=== PATIENT | female | born 1990 | race Caucasian/White ===

== ENCOUNTER → 2016-11-11 | Outpatient (CLI) | payer BC ==
[~2016-11-11] MED LIST: CLOM50TA6 PO; PRENTAB26 PO
[2016-11-11 11:10] LABS: BASO % 0.1 %; BASO ABS # 0.01 K/uL (0-0.2); COMPLETE YES; EOS % 0.8 %; HEMATOCRIT 38.6 % (37-47); IG% 0.1 %; LYMPH % 18.1 %; LYMPH ABS # 1.32 K/uL (1.2-3.4); MEAN CELL VOLUME 88.1 fL (80-100); MEAN CORPUSCULAR HEMOGLOBIN 30.4 pg (25-34); MEAN CORPUSCULAR HGB CONC 34.5 g/dl (32-36); MEAN PLATELET VOLUME 9.9 fL (7.4-10.4); MONO % 6.2 %; NEUT % 74.7 %; PLATELET COUNT 284 K/uL (130-400); RED BLOOD COUNT 4.38 M/uL (4.2-5.4); WHITE BLOOD COUNT 7.29 K/uL (4.8-10.8)
[2016-11-11 14:07] LABS: URINE APPEARANCE CLEAR (CLEAR); URINE BILIRUBIN NEG (NEG); URINE COLOR DK YELLOW; URINE EPITHELIAL CELL AUTO >30 /lpf (0-5); URINE NITRITE NEG (NEG); URINE PH 6.5 (4.5-7.5); URINE SPECIFIC GRAVITY 1.021 (1.000-1.030); UROBILINOGEN NEG (NEG)
[2016-11-11 14:10] LABS: MANUAL MICROSCOPIC REQUIRED? NO; REVIEW REQ? NO
[2016-11-14 01:55] LABS: CHLAMYDIA TRACH RNA*** NOT DETECTED (NOT DETECTED); GC (NEIS GONORRHOEAE)RNA** NOT DETECTED (NOT DETECTED)
== END | disposition home or self-care (01) ==
LOC: C.LAB1850 10:17
PROVIDERS: ATTEND Obstetrics & Gynecology
DX: Z34.82 Encounter for supervision of other normal pregnancy, second trimester (principal)

== ENCOUNTER → 2016-12-30 | Outpatient (CLI) | payer BC ==
[2016-12-30 11:59] LABS: GTGD 50 Grams
== END | disposition home or self-care (01) ==
LOC: C.LAB1850 09:52
PROVIDERS: ATTEND Obstetrics & Gynecology
DX: Z34.83 Encounter for supervision of other normal pregnancy, third trimester (principal)

== ENCOUNTER → 2017-01-06 | Outpatient (CLI) | payer BC | END | disposition home or self-care (01) | LOC: C.LAB1850 07:16 | PROVIDERS: ATTEND Obstetrics & Gynecology | DX: O28.9 Unspecified abnormal findings on antenatal screening of mother (principal) ==

== ENCOUNTER → 2017-03-25 | Outpatient (CLI) | payer BC ==
[2017-03-25 17:39] LABS: URINE APPEARANCE CLOUDY (CLEAR); URINE BILIRUBIN NEG (NEG); URINE COLOR DK YELLOW; URINE EPITHELIAL CELL AUTO >30 /lpf (0-5); URINE NITRITE NEG (NEG); URINE PH 5.5 (4.5-7.5); URINE SPECIFIC GRAVITY 1.026 (1.000-1.030); UROBILINOGEN NEG (NEG)
[2017-03-25 17:40] LABS: MANUAL MICROSCOPIC REQUIRED? NO; REVIEW REQ? NO
== END | disposition home or self-care (01) ==
LOC: C.LABSPEC 16:23
PROVIDERS: ATTEND Obstetrics & Gynecology
DX: Z34.83 Encounter for supervision of other normal pregnancy, third trimester (principal)

== ENCOUNTER → 2017-03-31 | Outpatient (CLI) | payer BC ==
[2017-03-31 09:32] LABS: HEMATOCRIT 33.3 % (37-47)
== END | disposition home or self-care (01) ==
LOC: C.LAB1850 07:05
PROVIDERS: ATTEND Obstetrics & Gynecology
DX: Z34.83 Encounter for supervision of other normal pregnancy, third trimester (principal)

== ENCOUNTER 2017-04-04 19:45 | Outpatient (CLI) | payer BC ==
[~2017-04-04] VITALS: Ht 165.1 cm; Wt 85.3 kg
[2017-04-04 20:59] VITALS: Ht 165.1 cm; Wt 85.3 kg
--- NOTE | 2017-04-04 21:41 | DIAGNOSTIC IMAGING REPORT ---
BIO PROF W/O NST-SINGLE ULTRASOUND CLINICAL HISTORY: decreased movement. COMPARISON STUDY: ultrasound 02/23/2016. FINDINGS: heart rate was 153 bpm. A survey was not performed. tone, movement, and breathing was demonstrated during the examination. Amniotic fluid index was 14.67 cm. Femur length is 5.5 cm consistent with a 29 week and 0 day fetus. Anterior placenta. No evidence for subchorionic hematoma. The cervix appears closed. Initial images demonstrate an abnormal appearance to the lower uterine segment likely representing a contraction. However, this resolved by the end of the examination. IMPRESSION: 1. heart rate was 153 bpm. 2. Biophysical profile score was 8 out of 8. Electronically signed by: Uri Rosenbaum M.D. 04/04/2017 9:39 PM Dictated Date/Time: 04/04/2017 9:37 PM
== END 2017-04-04 21:54 | disposition home or self-care (01) ==
LOC: C.OPB 19:45 → C.LD 19:45 → C.OPB 21:54
PROVIDERS: ATTEND Obstetrics & Gynecology
DX: O36.8130 Decreased fetal movements, third trimester, not applicable or unspecified (principal); Z3A.29 29 weeks gestation of pregnancy

== ENCOUNTER 2017-05-06 18:57 | Emergency (ER) | payer BC ==
[~2017-05-06] VITALS: Ht 165.1 cm; Wt 89.9 kg
[2017-05-06 19:00] VITALS: TEMP 36.8; Ht 165.1 cm; Wt 89.9 kg
--- NOTE | 2017-05-06 22:13 | EMERGENCY ROOM VISIT NOTE ---
History First contact with patient: 19:22 Chief Complaint: PALPITATIONS Stated Complaint: HEART PALPS Nursing Triage Summary: gets a cough and then feeling of palpations. History of Present Illness The patient is a 26 year old female who presents to the Emergency Room with complaints of intermittent palpitations. The patient is currently 34 weeks . She states that for the past 4 days, she has had intermittent palpitations which have been gradually increasing. She states that she has episodes of palpitations throughout the day and they do seem to slow down in the evening. She reports a fluttering, sometimes tight feeling in her chest and neck. These symptoms occasionally cause her to cough. She states that today at approximately 3 in the afternoon, she was awaiting a call from her OB/ LIVESTOCK LABORER with test results and she had constant symptoms for approximately 1 hour. The patient has had palpitations in the past, particularly when she was taking fertility medications. The patient has had 2 prior pregnancies and has never had symptoms like this in the past with . The patient states that her heart rate is normally between 109-110 when she is . She is currently being seen by FINANCIAL ADMINISTRATOR for possible preeclampsia, due to slightly elevated blood pressure and trace protein in the urine. She denies any swelling of her extremities. She denies any shortness of breath, chest pain or syncope. Review of Systems A complete 10 point review of systems was reviewed with the patient with pertinent positives and negatives as per history of present illness. All else were negative. Past Medical/Surgical History Medical Problems: (1) Abdominal pain (2) Decreased movement affecting management of in third trimester (3) Diarrhea (4) Intrauterine (5) Leg pain, right (6) Normal labor (7) Polycystic ovarian disease (8) with 29 completed weeks gestation Family History Diabetes mellitus FH: heart disease FH: thyroid disease Lung disease Social History Smoking Status: Never Smoker Alcohol Use: none Drug Use: none Marital Status: Occupation Status: employed Current/Historical Medications Scheduled Multivit/Min/Iron/Fol Ac/Pren ( Vitamin), 1 TAB PO DAILY Allergies Coded Allergies: Sulfamethoxazole w/Trimethoprim (Verified Allergy, Unknown, RASH, 05/06/17) Physical Exam Vital Signs Date Time Temp Pulse Resp B/P (MAP) Pulse Ox O2 Delivery O2 Flow Rate FiO2 05/06/17 22:46 103 18 148/92 96 05/06/17 22:00 105 16 05/06/17 20:17 114 16 128/79 96 Room Air 05/06/17 19:20 120 05/06/17 19:18 119 16 131/83 96 Room Air 05/06/17 19:16 96 Room Air 05/06/17 19:00 36.8 114 20 143/93 98 Room Air Physical Exam VITALS: Vitals are noted on the nurse's note and reviewed by myself. Vital signs stable. GENERAL: This is a 26-year-old female, in no acute distress, nondiaphoretic, well-developed well-nourished. HEENT: Normocephalic. PERRLA. EOMI. Nares patent. Mucous membranes moist. Neck is supple without nuchal rigidity. HEART: Regular rate and rhythm without murmurs gallops or rubs. LUNGS: Clear to auscultation bilaterally without wheezes, rales or rhonchi. NEURO: Patient was alert and oriented to person place and time. Medical Decision & Procedures ECG Rate (beats per minute): 107 Rhythm: sinus tachycardia Findings: no acute ischemic change, no ectopy Comparison ECG Date: no prior available Medical Decision Differential diagnosis includes PVCs, PACs, SVT, among others. The patient is a 26-year-old female who presents today complaining of palpitations. The patient does have a follow-up scheduled with [facility] cardiology in approximately one week. She had laboratory testing done earlier today. This was reviewed and showed a mild anemia. No concerning Stella tab modalities. Patient was in a euthyroid state. Her EKG performed today showed a sinus tachycardia with no acute findings. Patient was persistently tachycardic, but this appears to be baseline for her. I did observe the patient on the monitor for several minutes. She was having fairly frequent PVCs and reported symptoms each time this occurred. There were no runs of 2+ PVCs. I discussed the case with Dr. Sr of cardiology. He feels that the patient will need an echo and Holter monitor and will schedule these for the patient tomorrow. The patient can follow-up with her FINANCIAL ADMINISTRATOR and cardiology as scheduled. She was reassured and was instructed to return here for any concerns. Based on the patient's presentation and work up, I feel the patient is stable for outpatient treatment. The patient was educated to return to the emergency department for any worsening of their current condition or new/concerning symptoms. She will follow up with her FINANCIAL ADMINISTRATOR and cardiology. The patient's case was reviewed with Dr. Jones, ED attending physician, who agreed with my assessment and treatment plan. Medication reconciliation: I attest that I have personally reviewed the patient 's current medication list. Blood pressure screening: Patient was found to have mildly elevated blood pressure. She is already following up with FINANCIAL ADMINISTRATOR regarding this. Impression Primary Impression: Symptomatic PVCs Departure Information Dispostion Home / Self-Care Condition GOOD Referrals No Doctor, Assigned (PCP) Brent Sr M.D. Patient Instructions My [facility] Additional Instructions Call your FINANCIAL ADMINISTRATOR tomorrow morning to schedule follow-up with them. The cardiology office will be calling you tomorrow to schedule an echocardiogram (ultrasound of your heart) and Holter monitor to monitor your heart's rhythm. Rest and stay hydrated. Return to the emergency department with any worsening or new/concerning symptoms.
[2017-05-06 22:46] VITALS: BP 148/92; PULSE 103; O2SAT 96
== END 2017-05-06 22:35 | disposition home or self-care (01) ==
LOC: C.EDB 18:58 → C.EDA 22:35
DX: I49.3 Ventricular premature depolarization (principal); Z83.3 Family history of diabetes mellitus; Z82.49 Family history of ischemic heart disease and other diseases of the circulatory system

== ENCOUNTER → 2017-05-06 | Outpatient (CLI) | payer BC ==
[2017-05-06 13:19] LABS: HEMATOCRIT 32.2 % (37-47); MEAN CELL VOLUME 87.5 fL (80-100); MEAN PLATELET VOLUME 10.1 fL (7.4-10.4); PLATELET COUNT 238 K/uL (130-400); RED BLOOD COUNT 3.68 M/uL (4.2-5.4); WHITE BLOOD COUNT 9.35 K/uL (4.8-10.8)
[2017-05-06 13:46] LABS: CARBON DIOXIDE 23 mmol/L (21-32); CHLORIDE 106 mmol/L (98-107); POTASSIUM 3.5 mmol/L (3.5-5.1); SODIUM 136 mmol/L (136-145)
[2017-05-06 14:02] LABS: ALKALINE PHOSPHATASE 103 U/L (45-117); ALT/SGPT 21 U/L (12-78); AST/SGOT 17 U/L (15-37)
[2017-05-06 15:04] LABS: URINE APPEARANCE CLOUDY (CLEAR); URINE BILIRUBIN NEG (NEG); URINE COLOR YELLOW; URINE EPITHELIAL CELL AUTO >30 /lpf (0-5); URINE NITRITE NEG (NEG); URINE PH 6.5 (4.5-7.5); URINE SPECIFIC GRAVITY 1.024 (1.000-1.030); UROBILINOGEN NEG (NEG)
[2017-05-06 15:05] LABS: MANUAL MICROSCOPIC REQUIRED? NO; REVIEW REQ? NO
== END | disposition home or self-care (01) ==
LOC: C.LAB1850 12:19
PROVIDERS: ATTEND Obstetrics & Gynecology
DX: R00.2 Palpitations (principal); O13.9 Gestational [pregnancy-induced] hypertension without significant proteinuria, unspecified trimester

== ENCOUNTER → 2017-05-17 | Outpatient (CLI) | payer BC ==
[~2017-05-17] MED LIST changes: -CLOM50TA6 PO
[2017-05-17 17:30] LABS: HEMATOCRIT 33.4 % (37-47); MEAN CELL VOLUME 86.5 fL (80-100); MEAN CORPUSCULAR HEMOGLOBIN 26.9 pg (25-34); MEAN CORPUSCULAR HGB CONC 31.1 g/dl (32-36); MEAN PLATELET VOLUME 10.4 fL (7.4-10.4); PLATELET COUNT 268 K/uL (130-400); RED BLOOD COUNT 3.86 M/uL (4.2-5.4); WHITE BLOOD COUNT 8.83 K/uL (4.8-10.8)
[2017-05-17 17:42] LABS: ALKALINE PHOSPHATASE 121 U/L (45-117); ALT/SGPT 22 U/L (12-78); AST/SGOT 19 U/L (15-37)
== END | disposition home or self-care (01) ==
LOC: C.LAB1850 14:55
PROVIDERS: ATTEND Obstetrics & Gynecology
DX: O13.3 Gestational [pregnancy-induced] hypertension without significant proteinuria, third trimester (principal)

== ENCOUNTER → 2017-05-20 | Outpatient (CLI) | payer BC | END | disposition home or self-care (01) | LOC: C.LABSPEC 17:47 | PROVIDERS: ATTEND Obstetrics & Gynecology | DX: Z34.83 Encounter for supervision of other normal pregnancy, third trimester (principal) ==

== ENCOUNTER → 2017-05-24 | Outpatient (CLI) | payer BC ==
[2017-05-24 12:16] LABS: HEMATOCRIT 31.6 % (37-47); MEAN CELL VOLUME 86.8 fL (80-100); MEAN CORPUSCULAR HEMOGLOBIN 27.5 pg (25-34); MEAN CORPUSCULAR HGB CONC 31.6 g/dl (32-36); MEAN PLATELET VOLUME 10.4 fL (7.4-10.4); PLATELET COUNT 245 K/uL (130-400); RED BLOOD COUNT 3.64 M/uL (4.2-5.4); WHITE BLOOD COUNT 9.06 K/uL (4.8-10.8)
[2017-05-24 12:37] LABS: ALKALINE PHOSPHATASE 132 U/L (45-117); ALT/SGPT 21 U/L (12-78); AST/SGOT 15 U/L (15-37)
== END | disposition home or self-care (01) ==
LOC: C.LAB1850 11:13
PROVIDERS: ATTEND Obstetrics & Gynecology
DX: O13.3 Gestational [pregnancy-induced] hypertension without significant proteinuria, third trimester (principal)

== ENCOUNTER 2017-05-31 07:21 | Inpatient (IN) | payer BC ==
[~2017-05-31] VITALS: Ht 165.1 cm; Wt 91.0 kg
[2017-05-31] MEDS ORDERED: LACTATED RINGER'S 1000ML 1,000 ML IV SCH ×2 (07:24→17:40)
[2017-05-31] MEDS ORDERED: LACTATED RINGER'S 1000ML 500 ML IV PRN ×2 (07:24→15:21)
[2017-05-31] MEDS ORDERED: LACTATED RINGER'S 1000ML 1,000 ML IV PRN (07:24)
[2017-05-31] MEDS ORDERED: OXYTOCIN 30 UNITS/500ML NSS IV PRN ×3 (07:30→17:45)
[2017-05-31 07:53] LABS: HEMATOCRIT 30.6 % (37-47); MEAN CELL VOLUME 83.8 fL (80-100); MEAN CORPUSCULAR HEMOGLOBIN 27.1 pg (25-34); MEAN CORPUSCULAR HGB CONC 32.4 g/dl (32-36); MEAN PLATELET VOLUME 9.6 fL (7.4-10.4); PLATELET COUNT 227 K/uL (130-400); RED BLOOD COUNT 3.65 M/uL (4.2-5.4); WHITE BLOOD COUNT 7.68 K/uL (4.8-10.8)
[2017-05-31 08:07] VITALS: Ht 165.1 cm; Wt 91.0 kg
[2017-05-31 08:19] LABS: BUN/CREATININE RATIO 17.4 (10-20); CALCIUM 8.7 mg/dl (8.5-10.1); CREATININE 0.68 mg/dl (0.60-1.20); POTASSIUM 3.6 mmol/L (3.5-5.1)
[2017-05-31 08:21] LABS: ALB/GLOB RATIO 0.6 (0.9-2)
--- NOTE | 2017-05-31 11:20 | Medical Student: [facility] ---
Med Student History & Physical Date of Service May 31, 2017. Chief Complaint Induction History of Present Illness Source: patient Pt is 26 y.o. F w , DAT of 06/17/2017 by LMP, 37 and 4/7 weeks, presents for induction of labor. course has been significant for gestational HTN. No fluid loss/SROM or vaginal bleeding, reports good movements Blood type A+, rubella immune, GBS negative, HBV negative, VDRL/RPR nonreactive , C/G negative, 1hr GTT 151 CBC (05/31 7:43) Hgb:9.9 Hct:30.6 OB History G1 - Date: 12/07/2012, wt 7lbs 5oz, F, , complications: perineal 2nd degree laceration G2 - Date: 02/2016, ectopic HIDE [employer]TER History Menarche at age 13, LMP was 09/10/2016, hx of ASCUS in February 2015 Past Medical History Heart palpitations, situational anxiety, hx of ectopic Social History Smoking Status: Never Smoker Drug Use: none Marital Status: Housing status: lives with family Occupational Status: other (homemaker) Allergies Coded Allergies: Sulfamethoxazole w/Trimethoprim (Verified Allergy, Unknown, RASH, 05/31/17) Home Medications Multivit/Min/Iron/Fol Ac/Pren ( Vitamin), 1 TAB PO DAILY Physical Exam General Appearance: WD/WN, no apparent distress Respiratory/Chest: lungs clear, normal breath sounds, no respiratory distress Cardiovascular: regular rate, rhythm Extremities: no calf tenderness, + pedal edema (trace) Cervical exam: dilation 3cm, effacement 50%, station -3 Monitoring External Monitor: Baseline HR 150, moderate variability, no decelerations Laboratory Results 05/31/17 07:43 05/31/17 07:45 Test 05/31/17 07:43 05/31/17 07:45 Red Blood Count 3.65 M/uL (4.2-5.4) Mean Corpuscular Volume 83.8 fL (80-100) Mean Corpuscular Hemoglobin 27.1 pg (25-34) Mean Corpuscular Hemoglobin Concent 32.4 g/dl (32-36) RDW Standard Deviation 40.3 fL (36.4-46.3) RDW Coefficient of Variation 13.3 % (11.5-14.5) Mean Platelet Volume 9.6 fL (7.4-10.4) Anion Gap 11.0 mmol/L (3-11) Est Creatinine Clear Calc Drug Dose 138.5 ml/min Estimated GFR () 138.9 Estimated GFR (Non- 119.9 BUN/Creatinine Ratio 17.4 (10-20) Calcium Level 8.7 mg/dl (8.5-10.1) Total Bilirubin 0.3 mg/dl (0.2-1) Aspartate Amino Transf (AST/SGOT) 16 U/L (15-37) Alanine Aminotransferase (ALT/SGPT) 19 U/L (12-78) Alkaline Phosphatase 118 U/L (45-117) Total Protein 6.7 gm/dl (6.4-8.2) Albumin 2.6 gm/dl (3.4-5.0) Globulin 4.1 gm/dl (2.5-4.0) Albumin/Globulin Ratio 0.6 (0.9-2) Assessment and Plan Pt is a 26 y.o. who presents for induction of labor. Pt is comfortable. Plans on having an epidural for pain control. heart tracing is Category 1. - admit to L&D unit - routine maternal/ monitoring - start pitocin - NPO except ice chips and clear liquid - consider AROM as fetus moves further down into pelvis - Anticipate
[2017-05-31] MEDS ORDERED: EpHEDrine SULFATE INJ 50 MG/ML AMP ONE (13:24)
[2017-05-31] MEDS ORDERED: BUPIVACAINE 0.25% 30 ML VIAL ONE ×2 (13:24→14:26)
[2017-05-31] MEDS ORDERED: FENTANYL 2MCG/ML ROPIV 1.25MG/ML 100ML BAG EPI ONE (13:24)
[2017-05-31] MEDS ORDERED: FENTANYL CITRATE INJ 50 MCG/1 ML 2 ML VIAL ONE (13:25)
[2017-05-31] MEDS ORDERED: NALOXONE HCL INJ 1 MG in SODIUM CHLORIDE 0.9% 1000ML 1,000 ML IV PRN (15:21)
[2017-05-31] MEDS ORDERED: EpHEDrine SULFATE INJ 50 MG/ML AMP IV PRN (15:30)
[2017-05-31] MEDS ORDERED: ONDANSETRON INJ 2 MG/ML 2 ML VIAL IV PRN (15:30)
[2017-05-31] MEDS ORDERED: NALOXONE HCL INJ 0.4 MG/1 ML VIAL/CARP IV PRN (15:30)
[2017-05-31] MEDS ORDERED: DiphenhydrAMINE HCL 50 MG/ML VIAL IV PRN (15:30)
[2017-05-31] MEDS ORDERED: FENTANYL 2MCG/ML ROPIV 1.25MG/ML 100ML BAG EPI PRN (15:30)
[2017-05-31] MEDS ORDERED: NALBUPHINE HCL INJ 10 MG/ML AMP IV PRN (15:30)
[2017-05-31] MEDS ORDERED: DIPHTHERIA/TETANUS/PERTUSSIS 0.5 ML SYR/VIAL IM. ONE (17:45)
[2017-05-31] MEDS ORDERED: OXYCODONE/ACETAMINOPHEN 5-325 TAB PO PRN (17:45)
[2017-05-31] MEDS ORDERED: ACETAMINOPHEN 325 MG TAB PO PRN ×2 (17:45)
[2017-05-31] MEDS ORDERED: SUPERCREAM 0.870 % 15GM JAR EXT PRN ×2 (17:45)
[2017-05-31] MEDS ORDERED: ACETAMINOPHEN/CODEINE 300/30MG TAB PO PRN (17:45)
[2017-05-31] MEDS ORDERED: IBUPROFEN 600 MG TAB PO PRN (17:45)
[2017-05-31] MEDS ORDERED: LANOLIN OINT EXT PRN ×4 (17:45)
[2017-05-31] MEDS ORDERED: HYDROCORTISONE ACETATE 25 MG SUPP PR PRN ×2 (17:45)
[2017-05-31] MEDS ORDERED: BENZOCAINE 20% AER SPR 82.5 GM CAN EXT PRN ×2 (17:45)
--- NOTE | 2017-05-31 17:54 | Vaginal Delivery Summary ---
Vaginal Delivery Summary 26yo EGA of 37.4 presented for induction due to gestational HTN. Pt progressed to complete under epidural anesthesia and then began to push, delivering a viable female from the direct OP presentation. No nuchal cord. The was placed onto mother's abdomen, mouth and nose were suctioned, and a spontaneous cry was heard. Cord clamping was performed at the 15 second bridgette, double clamped and cut. Cord blood obtained. The placenta was then delivered spontaneously intact with a three-vessel cord. Pitocin was given and the uterus became firm. The uterus and vagina were cleared of all clots and debris. The cervix, vagina, and perineum were inspected and no perineal lacerations were noted. The uterus was externally massaged and excellent hemostasis was noted. Sponge and instrument counts were correct 2 at the conclusion of the delivery. The mother and baby recovered well in the room, both in stable and good condition. APGARS were 8 & 9. EBL 300 mL. Ron Ashton MD, PGY1
--- NOTE | 2017-05-31 18:09 | Medical Student: [facility] ---
Medical Student Delivery Note Delilah Wilson is a 26 y.o. F at 37 and 4/7 weeks with an DAT of 2016 who presents for induction of labor. IV pitocin and AROM were used for the induction. Pt received epidural anesthesia and began pushing after complete dilation and effacement. At 1727 a viable female with direct occiput posterior presentation was born. Baby was placed on abdomen of mother and suctioned and dried. Cord was doubly clamped and was cut by father of baby. Cord blood was obtained. Mother did not suffer any perineal laceration. A three- cord intact placenta was then delivered with uterine massage and gentle traction. Hemostasis was achieved with continued uterine massage. EBL 300ml. scores were 8 and 9. Mother and baby are doing well and recovering.
--- NOTE | 2017-05-31 19:07 | Anesthesia Procedure Note ---
Anesthesia Epidural Removal Nt Date & Time May 31, 2017 at 19:07 Vital Signs Pain Intensity: 6.0 Notes Mental Status: alert / awake / arousable, participated in evaluation Nausea / Vomiting: adequately controlled Pain: adequately controlled Airway Patency, RR, SpO2: stable & adequate BP & HR: stable & adequate Hydration State: stable & adequate Neuraxial Anesthesia: was administered, sensory block is resolving Anesthetic Complications: no major complications apparent, pt satisfied with anesthetic care Epidural: removed without complications, with tip intact
[2017-05-31] MEDS ORDERED: DOCUSATE SODIUM 100 MG CAP PO SCH (20:00)
[2017-05-31 20:55] VITALS: BP 133/83; PULSE 113; TEMP 36.9; O2SAT 96
[2017-05-31] MEDS: DOCUSATE SODIUM 100 MG CAP PO SCH (22:37)
[2017-05-31] MEDS: IBUPROFEN 600 MG TAB PO PRN (22:38)
[2017-05-31 23:25] VITALS: BP 133/83; PULSE 82; TEMP 36.7; O2SAT 96
--- NOTE | 2017-05-31 23:55 | DELIVERY SUMMARY ---
DATE OF OPERATION: 05/31/2017 PREOPERATIVE DIAGNOSES: 1. Lucio intrauterine at term. 2. Gestational hypertension. POSTOPERATIVE DIAGNOSES: Same. PROCEDURE: Spontaneous vaginal delivery. SURGEON: Dr. Fallon. BODY ENGINEER: PGY1 and the MS3. ESTIMATED BLOOD LOSS: 350. COMPLICATIONS: None. DESCRIPTION: Delilah is a 26-year-old G3, P2, whose labor was induced using Pitocin and artificial rupture of membranes as well as an epidural for pain management. I was called to the room when the patient's test push brought the head nearly to . I quickly gowned and prepped for delivery and the patient was then coached through pushing to deliver the head of the infant in the direct occiput posterior position. The baby restituted such that its left shoulder was anterior at delivery. There was no difficulty delivering the shoulders, whatsoever. Once the infant's body was delivered, the was placed on the maternal abdomen, where the cord was doubly clamped and cut by the father of the baby. The placenta delivered spontaneously and was intact with a 3-vessel cord. There were no lacerations requiring repair. The fundus was firm, well contracted and lochia was minimal following delivery. I attest to the content of the Intraoperative Record and any orders documented therein. Any exception s are noted below.
[2017-06-01 03:30] VITALS: BP 117/81; PULSE 93; TEMP 36.7; O2SAT 97
[2017-06-01 06:36] LABS: HEMATOCRIT 28.5 % (37-47)
--- NOTE | 2017-06-01 06:54 | OB/GYN Progress Note ---
STUDENT FINANCE ADVISOR Progress Note Date of Service Jun 01, 2017. Subjective conversation w/ patient, physical exam, chart review, lab review Ambulation: limited ambulation (to bathroom) Voiding: no voiding problems Passing Gas: Yes Diet Tolerance: Regular Diet Lochia: Small Feeding Type: Breast Feeding Pain: Mild low abd cramping Notes: Says her left calf and low back feel "sore", "like a muscle soreness". Denies any difficulty with BLE movement, outright pain, swelling, SOB, or other acute c /o. Review of Systems Constitutional: No fever, No chills Respiratory: No cough, No shortness of breath Cardiac: No chest pain Abdomen: No nausea, No vomiting, No diarrhea Female : No dysuria Objective Vital Signs Date Time Temp Pulse Resp B/P (MAP) Pulse Ox O2 Delivery O2 Flow Rate FiO2 06/01/17 03:30 36.7 93 16 117/81 (93) 97 Room Air 05/31/17 23:25 96 Room Air 05/31/17 23:25 36.7 82 18 133/83 (100) 96 Room Air 05/31/17 20:55 36.9 113 18 133/83 (100) 96 Room Air Physical Exam General Appearance: WELL-APPEARING, WD/WN, NO APPARENT DISTRESS Respiratory/Chest: lungs clear, normal breath sounds Cardiovascular: regular rate, rhythm, no edema Abdomen: normal bowel sounds Fundus: Firm, Non-Tender, Relation to Umbilicus (at umbilicus) Extremities: normal range of motion, non-tender (on calf palpation (B) as well as AROM and PROM of ankles), no pedal edema, no calf tenderness No back erythema, notable edema, or midline ttp. Laboratory Results Last 24 Hours Test 05/31/17 07:43 05/31/17 07:45 06/01/17 06:05 White Blood Count 7.68 K/uL Red Blood Count 3.65 M/uL Hemoglobin 9.9 g/dL 9.2 g/dL Hematocrit 30.6 % 28.5 % Mean Corpuscular Volume 83.8 fL Mean Corpuscular Hemoglobin 27.1 pg Mean Corpuscular Hemoglobin Concent 32.4 g/dl RDW Standard Deviation 40.3 fL RDW Coefficient of Variation 13.3 % Platelet Count 227 K/uL Mean Platelet Volume 9.6 fL Sodium Level 140 mmol/L Potassium Level 3.6 mmol/L Chloride Level 107 mmol/L Carbon Dioxide Level 22 mmol/L Anion Gap 11.0 mmol/L Blood Urea Nitrogen 12 mg/dl Creatinine 0.68 mg/dl Est Creatinine Clear Calc Drug Dose 138.5 ml/min Estimated GFR () 138.9 Estimated GFR (Non- 119.9 BUN/Creatinine Ratio 17.4 Random Glucose 138 mg/dl Calcium Level 8.7 mg/dl Total Bilirubin 0.3 mg/dl Aspartate Amino Transf (AST/SGOT) 16 U/L Alanine Aminotransferase (ALT/SGPT) 19 U/L Alkaline Phosphatase 118 U/L Total Protein 6.7 gm/dl Albumin 2.6 gm/dl Globulin 4.1 gm/dl Albumin/Globulin Ratio 0.6 Assessment and Plan Post- Day Number: 1 Continue Routine Care: 26yo s/p , now PPD #1. - Blood type A positive. GBS negative. Rubella immune. - Vital signs reviewed and stable. - Pain controlled with motrin. - No leg swelling or tenderness on calf palpation. Encourage ambulation. - Encourage breast feeding. - Hemoglobin pre-delivery 9.9, post-delivery 9.2. Bleeding has improved. Continue to monitor clinically. - Continue routine post-vaginal delivery care. - Pt agreed with above plan, all current questions answered. Ron Ashton MD, PGY1 Assessment Counselor Physician Supervision Note: I interviewed and examined the patient. Discussed with Dr. Ashton and agree with findings and plan as documented in the note. Any exceptions or clarifications are listed here: [None] Documented By: Skyla Fallon Resident Tracking Resident Involvement: Resident Care Provided Care Provided: OB Delivery (morning rounds)
--- NOTE | 2017-06-01 07:19 | Medical Student: [facility] ---
Med Student WAFER CLEANER Progress Nt Date of Service Jun 01, 2017. Subjective conversation w/ patient, physical exam, chart review, lab review Ambulation: limited ambulation (able to walk to bathroom) Voiding: no voiding problems Passing Gas: Yes Diet Tolerance: Regular Diet Lochia: Small Feeding Type: Breast Feeding Notes: reports some mild lower abdominal cramping and some soreness in left leg that feels like a musculoskeletal complaint Review of Systems Constitutional: No fever, No chills Respiratory: No shortness of breath Abdomen: No nausea, No vomiting Objective Vital Signs Date Time Temp Pulse Resp B/P (MAP) Pulse Ox O2 Delivery O2 Flow Rate FiO2 06/01/17 03:30 36.7 93 16 117/81 (93) 97 Room Air 05/31/17 23:25 96 Room Air 05/31/17 23:25 36.7 82 18 133/83 (100) 96 Room Air 05/31/17 20:55 36.9 113 18 133/83 (100) 96 Room Air Physical Exam General Appearance: WELL-APPEARING, WD/WN, NO APPARENT DISTRESS Respiratory/Chest: lungs clear, normal breath sounds Cardiovascular: regular rate, rhythm, no edema Abdomen: normal bowel sounds Fundus: Firm, Non-Tender, Relation to Umbilicus (at umbilicus) Laboratory Results Last 24 Hours Test 05/31/17 07:43 05/31/17 07:45 06/01/17 06:05 White Blood Count 7.68 K/uL Red Blood Count 3.65 M/uL Hemoglobin 9.9 g/dL 9.2 g/dL Hematocrit 30.6 % 28.5 % Mean Corpuscular Volume 83.8 fL Mean Corpuscular Hemoglobin 27.1 pg Mean Corpuscular Hemoglobin Concent 32.4 g/dl RDW Standard Deviation 40.3 fL RDW Coefficient of Variation 13.3 % Platelet Count 227 K/uL Mean Platelet Volume 9.6 fL Sodium Level 140 mmol/L Potassium Level 3.6 mmol/L Chloride Level 107 mmol/L Carbon Dioxide Level 22 mmol/L Anion Gap 11.0 mmol/L Blood Urea Nitrogen 12 mg/dl Creatinine 0.68 mg/dl Est Creatinine Clear Calc Drug Dose 138.5 ml/min Estimated GFR () 138.9 Estimated GFR (Non- 119.9 BUN/Creatinine Ratio 17.4 Random Glucose 138 mg/dl Calcium Level 8.7 mg/dl Total Bilirubin 0.3 mg/dl Aspartate Amino Transf (AST/SGOT) 16 U/L Alanine Aminotransferase (ALT/SGPT) 19 U/L Alkaline Phosphatase 118 U/L Total Protein 6.7 gm/dl Albumin 2.6 gm/dl Globulin 4.1 gm/dl Albumin/Globulin Ratio 0.6 Medications motrin for pain control Assessment and Plan Post- Day Number: 1 Continue Routine Care: Pt is a 26 y.o. s/p at PPD#1. Blood type is A positive, GBS negative , and rubella immune. - use motrin as needed for pain control - encourage ambulation and - pre-delivery Hgb is 9.9 and post-delivery Hgb is 9.2. Will continue to monitor - provide routine post-vaginal delivery care.
[2017-06-01 07:25] VITALS: BP 134/89; PULSE 81; TEMP 36.9; O2SAT 98
[2017-06-01] MEDS ORDERED: PRENATAL VITAMIN TAB PO SCH ×2 (08:00)
[2017-06-01] MEDS ORDERED: FERROUS SULFATE 325 MG TAB PO SCH (08:00)
[2017-06-01] MEDS: DOCUSATE SODIUM 100 MG CAP PO SCH (09:33)
--- NOTE | 2017-06-01 10:03 | Discharge Instructions ---
Discharge Instructions Date of Service Jun 01, 2017. Admission Reason for Admission: Induction Discharge Discharge Diagnosis / Problem: Discharge Goals Goal(s): Routine recovery after delivery Activity Recommendations Activity Limitations: per Instructions/Follow-up section . Instructions / Follow-Up Instructions / Follow-Up ACTIVITY RECOMMENDATIONS: * Gradual return to full activity over the next 2-3 weeks. * No lifting - nothing heavier than baby over the next 2-3 weeks. * Do not engage in vigorous exercise, sexual activity or sports until cleared by your physician. * Do not drive or operate any motorized equipment until cleared by your physician. * You may shower/bathe daily. MEDICATIONS: For discomfort or pain, you may use Acetaminophen (Tylenol), Ibuprofen (Advil), or Naproxen (Aleve) following the package directions. For constipation you may use Colace following the package directions. BREAST CARE: If you are not breast feeding: * Wear a supportive bra 24 hours a day for one to two weeks. * Avoid stimulating your breasts and nipples as much as possible during the first few weeks after delivery. * When taking a shower, have the warm water hit your back, not breasts. * When your breasts feel full, apply ice packs. Usually three to four times a day helps ease the discomfort. * Take a mild pain medication (Tylenol / Motrin) when you are uncomfortable. If breast feeding: * Use breast milk to lubricate nipples. Lansinoh cream may be used for sore nipples. You do not need to remove cream prior to breast feeding. If using a different brand of cream, check the label for directions regarding removal of cream prior to nursing. * Wear a supportive bra. * If having problems with breasts or breast feeding, call a dietitian consultant or your health care provider. EPISIOTOMY CARE: After delivery, if you have an episiotomy (stitches), the following steps will ease discomfort and aid healing. * For the first 24 hours after delivery, place ice packs next to your episiotomy to help reduce swelling. * After the first 24 hour-period, sitz baths, either portable or in the tub, are suggested. A shower with a shower arm sprayed over the episiotomy may be comforting. * Mounika care should be done after each voiding and bowel movement. Squirt warm water from a plastic bottle over the perineum (region of the body between the anus and urinary opening) and pat dry. * Use Dermoplast to ease discomfort. Shake container. Lyons directly over the episiotomy. Place a Tucks on a clean sanitary pad next to your episiotomy. SPECIAL CARE INSTRUCTIONS: When you are discharged from the hospital, it is important for you to follow the instructions listed below: * During the first week at home, you should be able to care for yourself and your baby. In addition, the usual light household activities are encouraged. * Limit your activities to the way you feel. Do not try to clean the house or move furniture. Be sensible. * If you actively engage in sports and have done so up until the time of your delivery, you may resume these activities as soon as you feel able. This may take up to one month or even longer. Use good judgment. * Continue to take your vitamins for at least six weeks after the of your baby. * Your diet need not be limited unless you were on a special diet before your delivery. Breast-feeding mothers need around 2500 calories per day and at least 64-80 ounces of fluid per day (8 to 10 glasses). * You should eat foods from the four major food groups. Crash diets or fad diets are to be avoided. Eating lean meats, fresh fruits and vegetables, low-fat dairy products, high fiber foods and a regular exercise program, will help you get back to your pre- weight without putting your health at risk. * Constipation is sometimes a problem after delivery. Take a mild laxative as needed. If breast feeding, Milk of Magnesia is acceptable to use. You may use a suppository or Fleets enema if no episiotomy. * A daily shower or tub bath is suggested. Be sure to thoroughly and gently dry the perineum. * A bloody vaginal discharge will usually continue until around four weeks post . A small amount of bleeding may continue for as long as six weeks. Vaginal discharge changes from the bright red bleeding after delivery to pink then brownish and finally yellowish-pink before becoming white and disappearing. * Bleeding may increase with activity. Your first period may come in 4-8 weeks. If you are breast feeding, your period may be delayed even longer. * Yampa (sex) can begin whenever both you and your partner feel comfortable and do not have any form of genital infection. It is recommended that you wait at least six weeks for internal and external healing to occur. If you have questions, please talk to your health care practitioner. A condom should be used to prevent infection and . * Foreplay, gentle intercourse and lubrication is very important the first several times to prevent pain. A water-based lubricant such as K-Y jelly or Astroglide may be used. * If you have RH negative blood and your baby is RH positive, you will receive RHOGAM by injection prior to discharge. The nurse will give you a card to keep with you that has the date and place that you received RHOGAM after delivery. * During your care, you had a Rubella screen done to check for the presence of rubella antibodies in your blood. If your test was negative, you will receive a Rubella vaccine prior to discharge. This vaccine may cause a fever, soreness at the injection site and flu-like symptoms. If these symptoms persist, notify your health care practitioner. is not advised for one month after a Rubella vaccine. * Verbalizes understanding of car seat law as reviewed with patient nursing. * Car Seat hand-out given and reviewed with patient by nursing. * Shaken baby information reviewed with patient by nursing. Call you doctor if: * Heavy bleeding (saturating several pads an hour) or passing clots the size of your fist. * A fever >101 degrees F (38.3 degrees C) on two occasions four hours apart and /or chills. * Unusual pain in the pelvic or vaginal areas. * "Baby Blues" lasting longer than two weeks. If you have any questions or concerns, call your health care practitioner at . FOLLOW UP VISIT: * Please call the office at to schedule a 6 week examination. It is important you keep this appointment. It is important for you to make arrangements for either yearly or twice yearly check-ups thereafter. Current Hospital Diet Patient's current hospital diet: Regular OB Diet Discharge Diet Recommended Diet: Regular OB Diet Pending Studies Studies pending at discharge: no Medical Emergencies . Who to Call and When: Medical Emergencies: If at any time you feel your situation is an emergency, please call 911 immediately. . Non-Emergent Contact Non-Emergency issues call your: Production Maintenance Mechanic . . "Provider Documentation" section prepared by Nicanor Posey. . VTE Core Measure Inpt VTE Proph given/why not?: Treatment not indicated
--- NOTE | 2017-06-01 10:43 | DIAGNOSTIC IMAGING REPORT ---
LEFT VENOUS DOPP LOWER EXT UNILAT CLINICAL HISTORY: leg pain pain TECHNIQUE: Venous Doppler COMPARISON STUDY: None FINDINGS: Normal study IMPRESSION: Normal study The above report was generated using voice recognition software. It may contain grammatical, syntax or spelling errors. Electronically signed by: Ruben Estrada M.D. 06/01/2017 10:42 AM Dictated Date/Time: 06/01/2017 10:41 AM
[2017-06-01 11:14] VITALS: BP 134/89; PULSE 80; TEMP 36.8; O2SAT 98
[2017-06-01] MEDS: IBUPROFEN 600 MG TAB PO PRN (11:31)
[2017-06-01 15:35] VITALS: BP 135/87; PULSE 92; TEMP 36.7
[2017-06-01 19:17] VITALS: BP_DIAS 87; PULSE 92; TEMP 36.7
[2017-06-01] MEDS ORDERED: BISACODYL 5 MG TABEC PO SCH (20:00)
[2017-06-01] MEDS ORDERED: ACYCLOVIR 5% OINT 15 GM TUBE EXT SCH (20:00)
[2017-06-02] MEDS ORDERED: BISACODYL 10 MG SUPP PR PRN (07:00)
--- NOTE | 2017-06-02 18:04 | EDITING REQUIRED CODING QUERY ---
CODING QUERY Dear Dr. Fallon, To promote full compliance with coding requirements relating to patient care, provider participation is requested in all cases of director [employer] uncertainty. Please assist us with the question(s) below: Coding Question(s): Does the patient have? - Please bridgette all that apply by marking it with (x) in the parentheses. ( ) Preeclampsia ( ) with pre-existing hypertension ( ) Gestational hypertension ( ) Mild ( ) Moderate ( ) Severe ( ) Severe with hemolysis, elevated liver enzymes, and low platelet count (HELLP) x Only Gestational Hypertension ( ) Only Pre-existing hypertension ( ) Gestational edema with proteinuria ( ) Proteinuria without preeclampsia Physician's Response(s): Thank you Valarie Ortiz Principal Diagnosis: "_that condition established after study, to be chiefly responsible for occasioning the admission of the patient to the hospital for care." Co-Existing Principal Diagnosis: "_when two or more diagnoses equally meet the criteria for principal diagnosis as determined by the circumstances of admission, diagnostic work up, and/or therapy provided, and the Alphabetic Index, Tabular List, or another coding guideline does not provide sequencing direction, any one of the diagnoses may be sequenced first." "When the physician has documented what appears to be a current diagnosis in the body of the record, but has not included the diagnosis in the final diagnostic statement, the physician should be asked whether the diagnosis should be added." (Source [facility]oding [facility] 2 QTR90. p3-4)
== END 2017-06-01 19:30 | disposition home or self-care (01) | DRG 774 ==
LOC: C.LD 07:21 → C.OBG 20:17
PROVIDERS: ADMIT Obstetrics & Gynecology; ATTEND Obstetrics & Gynecology
PROC: 10E0XZZ Delivery of Products of Conception, External Approach (ICD-10-PCS; principal; 2017-05-31)
PROC: 10907ZC Drainage of Amniotic Fluid, Therapeutic from Products of Conception, Via Natural or Artificial Opening (ICD-10-PCS; principal; 2017-05-31)
PROC: 3E033VJ Introduction of Other Hormone into Peripheral Vein, Percutaneous Approach (ICD-10-PCS; principal; 2017-05-31)
DX: O13.4 Gestational [pregnancy-induced] hypertension without significant proteinuria, complicating childbirth (principal); O99.43 Diseases of the circulatory system complicating the puerperium; Z37.0 Single live birth; O76 Abnormality in fetal heart rate and rhythm complicating labor and delivery; R00.2 Palpitations; Z3A.37 37 weeks gestation of pregnancy

== ENCOUNTER → 2017-08-13 | Outpatient (CLI) | payer BC ==
--- NOTE | 2017-08-13 15:48 | MAMMOGRAPHY REPORT ---
ULTRASOUND OF RIGHT BREAST: 08/13/2017 CLINICAL HISTORY: The patient is approximately 2 months and is currently breast-feeding. Approximately one month ago she felt a tender lump. The tenderness improved somewhat although the meagan mp became more painful again last Wednesday. She denies any clear erythema on the skin. COMPARISON: No prior exams were available for comparison. TECHNIQUE: Real-time targeted ultrasound of the right breast was performed. FINDINGS: Real-time, high resolution targeted ultrasound was performed of the area of the palpable l ump pointed out by the patient, in the right breast at 1:00, approximately 7 cm from the nipple. At the site of the palpable lump there is an irregular hypoechoic mass with surrounding hyperechoic tiss ue, measuring approximately 2.8 x 0.9 x 1.3 cm. During real-time imaging some of the internal echoge bhupendra material within the mass was shown to be mobile, suggestive of fluid. Given the presence of flui d in the mass, this likely represents an abscess although malignancy is not excluded at this time. R ecommend ultrasound-guided aspiration, with conversion to biopsy if no fluid can be aspirated from th e mass. IMPRESSION: ACR BI-RADS CATEGORY 4: SUSPICIOUS - FOLLOW-UP RECOMMENDED Irregular hypoechoic 2.8 cm mass at the site of the palpable lump in the right 1:00 breast. On real- time imaging the mass contains internal fluid components and therefore likely represents an abscess a lthough malignancy is not excluded at this time. Recommend ultrasound-guided aspiration for further evaluation, with conversion to biopsy if no fluid can be aspirated from the mass. A phone call was made to the physician's office to confirm faxed results were received. The patient was verbally notified of the results. A phone call was also made to her electrical engineering teacher Dr. Alfonso, who prescribed antibiotics for her. She is also scheduled for ultrasound-guided aspiration on y 08/16/2017. Dipika Fleming M.D. ah/:08/13/2017 15:04:58 Attending Technologist: Jocelyn PAIGE(R)(M), [facility] Marketing Program Coordinator: Dipika Fleming MD, [facility] letter sent: Abnormal 4/5 BI-RADS Code: ACR BI-RADS Category 4: Suspicious
== END | disposition home or self-care (01) ==
LOC: C.MAMM 12:38
PROVIDERS: ATTEND Physician Assistant Medical
DX: N63.10 Unspecified lump in the right breast, unspecified quadrant (principal)

== ENCOUNTER → 2017-08-16 | Outpatient (CLI) | payer BC ==
--- NOTE | 2017-08-16 14:55 | Discharge Instructions ---
Discharge Instructions Procedure Procedure Date: Aug 16, 2017. Reason for visit: Right Breast Abcess. Discharge Discharge Date: Aug 16, 2017. Discharge Diagnosis: status post breast biopsy Instructions Activity Recommendations: Additional Limitations (see below) Return to School/Work: no limitations Recommended Home Diet: No Limitations Provider Instructions: ACTIVITY RECOMMENDATIONS: * No lifting, pushing, pulling or exercising the affected side for three days. RETURN TO SCHOOL/WORK: * You may return to work/school after the procedure, but do not perform any strenuous activities for 24 to 48 hours. MEDICATIONS: * Tylenol (two 325 mg) every four to six hours if needed for mild pain (if not allergic to Tylenol). DIET: * Resume previous diet. SPECIAL CARE INSTRUCTIONS: * Keep biopsy site dry for 24 hours. May shower after 24 hours, but do not soak (bathe) incision. * May remove Tegaderm (plastic patch) tomorrow AFTER showering. * Leave the steri-strips on for one week. Allow the steri-strips to fall off by themselves. If not off after one week, you may remove them. You may place a Bandaid crosswise over the strips, if desired. * Apply ice 10 minutes on and 10 minutes off as needed. * Wear a bra at bedtime to sleep more comfortably for 2-3 days. * Your referring physician should have the results after approximately 5 to 7 business days. * Call for unusual bleeding, fever, drainage, etc or if you have any questions call during normal business hours or after hours call Dr Fleming, . FOLLOW UP VISIT: Follow-up with Referring Physician as scheduled. Allergies Coded Allergies: Sulfamethoxazole w/Trimethoprim (Verified Allergy, Unknown, RASH, 05/31/17) Gabe Yang Recommendations: Call your doctor if: * Temperature above 101 degrees * Pain not relieved by pain medicine ordered * There is increased drainage or redness from any incision * You have any unanswered questions or concerns. Your Doctors Instructions noted above were prepared by provider Dipika Fleming. Patient Signature Section: Patient Instructions Signature Page Delilah Wilson Patient (or Guardian) Signature/Date: I have read and understand the instructions given to me by my caregivers. Caregiver/RN/Doctor Signature/Date: The above-named patient and/or guardian has received patient instructions on this date. + Original Patient Signature Page (only) stays with chart. Please make copy for patient.
--- NOTE | 2017-08-17 07:41 | MAMMOGRAPHY REPORT ---
ASPIRATION: 08/16/2017 Please see the separate report for ultrasound-guided biopsy performed on the same day for full detail . IMPRESSION: ASPIRATION Please see the separate report for ultrasound-guided biopsy performed on the same day for full detail of the procedures performed. Dipika Fleming M.D. ah/:08/16/2017 19:53:26 Tree Killer: Dariana Isaacs, [facility]
--- NOTE | 2017-08-17 07:41 | MAMMOGRAPHY REPORT ---
ULTRASOUND GUIDED BIOPSY RIGHT BREAST: 08/16/2017 CLINICAL HISTORY: Lactating female with hypoechoic mass at the site of a palpable lump in the right 1 :00 breast. PATIENT CONSENT: The procedure and risks (including milk fistula) were discussed with the patient and informed written consent was obtained. A timeout was performed immediately prior to the procedure. PROCEDURE DESCRIPTION: The patient reported that today she was having pain and an associated palpable area that was a larger area than previously described during her last ultrasound. Ultrasound was performed of the area of p ain and palpable finding pointed out by the patient involving the right 12:00-1:00 breast. Again note d is an irregular hypoechoic mass in the right 1:00 breast at the site of the lump previously pointed out by the patient. Additionally, there is lobulated hypoechoic mass in the right 12:00 breast, 5 cm from the nipple, which is ill-defined and irregular in shape and therefore difficult to measure but measures at least 3.6 x 1.8 x 4.6 cm. This appears similar to the right 1:00 mass and likely communic ates with the 1:00 mass and likely represents a multiloculated mass/fluid collection. Mobile material was also seen within the right 12:00 mass, suggestive of fluid. First, with ultrasound guidance, aseptic technique, and lidocaine as the local anesthetic, an attempt was made to aspirate the 12:00 mass using an 18-gauge needle and syringe. Approximately 2-3 cc of cl oudy pink fluid was aspirated and sent to cytology for gram stain and culture. Later, an attempt was made to aspirate the right 1:00 mass. A minimal amount of cloudy pink fluid was aspirated. Given that only a small amount of fluid was able to be aspirated and therefore the masses did not resolve with aspiration, the decision was made to perform biopsy of the right 1:00 mass. With ultrasound guidance, aseptic technique, and lidocaine as the local anesthetic (1% lidocaine to a nesthetize the skin and 1% lidocaine with epinephrine to anesthetize the deeper tissues), the mass in the right 1:00 breast was sampled 3 times with a 14-gauge Achieve biopsy needle. Immediately therea fter, with ultrasound guidance, aseptic technique, and lidocaine as the local anesthetic, a metallic localizer clip was placed into the mass. Direct pressure was applied to the site immediately post pro cedure and hemostasis was achieved. The patient tolerated the procedure without complication. She w as given wound care instructions. The specimens were sent to pathology for analysis. COMPARISON: Comparison is made to exam dated: 08/13/2017 ultrasound - [facility]. IMPRESSION: ULTRASOUND GUIDED BIOPSY 1. The patient reported pain and associated palpable finding that was a larger area then described du ring her last ultrasound exam. Today's ultrasound shows irregular similar-appearing masses in the rig ht 12:00-1:00 breast which may communicate and may represent a multiloculated fluid collection. It is difficult to measure the masses due to the irregular shape and ill-defined nature, but the right 12: 00 hypoechoic region measures at least 4.6 cm and right 1:00 hypoechoic mass meaures 2.8 cm (based on prior ultrasound). 2. Aspiration was attempted of the right 12:00 and 1:00 masses, and only a small amount of cloudy pin k fluid was aspirated and sent to cytology for gram stain/culture. Ultrasound-guided core needle biop sy was also performed of the 1:00 breast mass. The patient will receive results from her referring jyoti noguera. Dipika Fleming M.D. ah/:08/16/2017 19:51:27 National Van Owner Operator: Dariana Isaacs, [facility]
== END | disposition home or self-care (01) ==
LOC: C.MAMM 14:02
PROVIDERS: ATTEND Physician Assistant Medical
DX: N63.0 Unspecified lump in unspecified breast (principal); N61.1 Abscess of the breast and nipple

== ENCOUNTER → 2017-08-18 | Outpatient (CLI) | payer BC ==
--- NOTE | 2017-08-19 13:55 | MAMMOGRAPHY REPORT ---
ASPIRATION RIGHT BREAST: 08/18/2017 CLINICAL HISTORY: The patient underwent recent attempted aspiration of a right 12:00 breast mass as w ell as aspiration/biopsy of a right 1:00 breast mass 08/16/2017. 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 Since the procedures, the patient has had redness and warmth on the ski n at 12:00. She also reports that the area is more swollen and painful. She is currently breast-fee ding. She was seen by Dr. Aguiar today who changed her antibiotics and requests repeat attempted asp iration of the right 12:00 breast. PATIENT CONSENT: The procedure and risks of ultrasound-guided cyst aspiration were discussed in full with the patient. The risk of milk fistula was discussed. Both oral and written consents were obtai janene. PROCEDURE DESCRIPTION: Preprocedural ultrasound again shows a lobulated hypoechoic mass in the right 12:00 breast, which does not appear significantly changed in size compared to the 08/26/2017 exam. T here is increased echogenicity of the breast parenchyma anterior to the mass and the skin overlying t he mass appears thickened, which corresponds with the area of skin erythema, suggestive of cellulitis /mastitis. With ultrasound guidance, aseptic technique, and 1% lidocaine as a local anesthetic, an a ttempt was made to aspirate the hypoechoic right 12:00 breast mass using an 18-gauge needle and syrin ge. Approximately 1-2 mL of bloody fluid was aspirated and sent to cytology for Gram stain, culture, and cytology. Direct pressure was applied to the site immediately post procedure and hemostasis wa s achieved. The patient tolerated the procedure without complication. COMPARISON: Comparison is made to exams dated: 08/16/2017 aspiration, 08/16/2017 ultrasound biopsy, an d 08/13/2017 ultrasound - [facility]. IMPRESSION: ASPIRATION 1. No significant interval increase in size of the hypoechoic mass in the right 12:00 breast. There is increased echogenicity of the breast parenchyma anterior to the mass and the overlying skin is thi ckened and erythematous, suggestive of cellulitis/mastitis. 2. Approximately 1-2 cc of bloody fluid was aspirated from the right 12:00 breast mass. The fluid wa s sent to cytology for analysis. The patient will receive cytology results from her referring provid er. Dipika Fleming M.D. ah/:08/18/2017 17:02:36 Retanned Leather Roller: Dariana PAIGE(Ana)(M), [facility]
== END | disposition home or self-care (01) ==
LOC: C.MAMM 14:44
PROVIDERS: ATTEND Surgery
DX: N64.9 Disorder of breast, unspecified (principal)

== ENCOUNTER → 2017-10-27 | Outpatient (CLI) | payer BC | END | disposition home or self-care (01) | LOC: C.PAPS 15:33 | PROVIDERS: ATTEND Nurse Practitioner | DX: Z01.419 Encounter for gynecological examination (general) (routine) without abnormal findings (principal); Z11.51 Encounter for screening for human papillomavirus (HPV) ==

== ENCOUNTER 2018-12-18 09:31 | Inpatient (IN) ==
[2018-12-18] MEDS ORDERED: OXYTOCIN 30 UNITS/500 ML BAG IV PRN ×2 (09:46→11:04)
[2018-12-18] MEDS ORDERED: LACTATED RINGER'S 1,000 ML IV PRN (09:46)
[2018-12-18] MEDS ORDERED: OXYTOCIN 30 UNITS/500ML NSS ONE (09:54)
[2018-12-18] MEDS ORDERED: LACTATED RINGER'S 1,000 ML IV SCH (10:00)
[2018-12-18] MEDS ORDERED: IBUPROFEN 600 MG TAB PO ONE (10:15)
--- NOTE | 2018-12-18 11:03 | Delivery Summary ---
DATE OF OPERATION: 12/18/2018 PROCEDURE: Normal spontaneous vaginal delivery. SURGEON: Dr. Troy Gracia. PREOPERATIVE DIAGNOSES: 1. Single intrauterine at term. 2. Labor. POSTOPERATIVE DIAGNOSES: 1. Single intrauterine at term. 2. Labor. 3. Delivered. ESTIMATED BLOOD LOSS: 200 mL. DRAINS: None. FLUIDS: Continuous lactated ringer. URINE OUTPUT: Not measured. COMPLICATIONS: None. FINDINGS: Viable male infant with weight and Apgars pending. INDICATIONS: The patient is a 28-year-old G4, P2-0-1-2, admitted at 39 weeks 5 days gestational age in active labor. At time of presentation, the patient was found to be 9.5 cm dilated with a bulging bag. The membranes were soon ruptured and the patient progressed to complete began pushing at +1 station. The patient then pushed for approximately 12-15 minutes till delivery. DESCRIPTION OF PROCEDURE: The patient progressed to 10 cm dilated, 100% effaced, positive 1 station and pushed over intact perineum, delivered a viable male infant. Weight and Apgars are pending. The delivered in CALLIE position, rest into right transverse. No nuchal cord was noted. Body and shoulders quickly followed. The was noted to be vigorous soon after delivery. One minute delay cord clamping was initiated after which the cord was double clamped and cut. Cord blood was then obtained. was noted to be continued to be vigorous. Attention was then turned to deliver the placenta, it was delivered intact 3-vessel cord with gentle cord traction. Inspection of vagina, perineum and cervix showed no lacerations. Needle, sponge and instrument counts were correct at completion of the case. I attest to the content of the Intraoperative Record and any orders documented therein. Any exception s are noted below.
[2018-12-18] MEDS ORDERED: HYDROCORTISONE ACETATE 25 MG SUPP PR PRN (11:04)
[2018-12-18] MEDS ORDERED: BENZOCAINE 20% AER SPR 82.5 GM CAN EXT PRN (11:04)
[2018-12-18] MEDS ORDERED: SUPERCREAM 0.870% 15 GM JAR EXT PRN (11:04)
[2018-12-18] MEDS ORDERED: DIPHTHERIA/TETANUS/PERTUSSIS 0.5 ML SYR/VIAL IM ONE (11:04)
[2018-12-18] MEDS ORDERED: ACETAMINOPHEN 325 MG TAB PO PRN (11:04)
[2018-12-18] MEDS: IBUPROFEN 600 MG TAB PO PRN (20:42)
[2018-12-18] MEDS: DOCUSATE SODIUM 100 MG CAP PO SCH (20:42)
[2018-12-19 06:51] LABS: Hematocrit (blood only) 33.5 % (37-47); Hemoglobin 10.3 g/dL (12.0-16.0); Mean Corpuscular Hgb Conc 30.7 g/dL (32-36); Mean Corpuscular Volume 81.9 fL (80-100); Platelet Count 204 K/uL (130-400); RDW Coefficient of Variation 14.6 % (11.5-14.5); RDW Standard Deviation 43.7 fL (36.4-46.3); Red Blood Count 4.09 M/uL (4.2-5.4); White Blood Count 11.35 K/uL (4.8-10.8)
--- NOTE | 2018-12-19 07:21 | Obstetrical Progress Note ---
Date of Service <Edith Quiñones MD - Last Filed: 12/19/18 07:37> December 19, 2018 Assessment & Plan <Edith Quiñones MD - Last Filed: 12/19/18 07:37> (1) (spontaneous vaginal delivery): 28YO WITH AT 39.5. PPD Day 2 -Routine care, amb diet and hydration, pain control Day #:: 1 Subjective <Edith Quiñones MD - Last Filed: 12/19/18 07:37> Ambulation: ambulating normally Voiding: no voiding problems Passing Gas:: Yes Diet Tolerance:: regular diet Lochia:: Moderate Feeding Type:: breast feeding Current Pain Level(1-10): 3 Review of Systems All systems reviewed & are unremarkable except as noted in HPI & below Constitutional: no fever and no chills Eyes: no problem reported Cardiovascular: no palpitations (resolved currently) Gastrointestinal: no nausea and no vomiting Physical Exam <Edith Quiñones MD - Last Filed: 12/19/18 07:37> Vital Signs (Past 24 Hours) Last Vital Signs Temp 36.7 C 12/19/18 04:05 Pulse 89 12/19/18 04:05 Resp 18 12/19/18 04:05 BP 133/75 12/19/18 04:05 Pulse Ox 97 12/19/18 04:05 Constitutional WD/WN, vitals as above Respiratory normal respiratory effort, lungs clear to auscultation Cardiovascular RRR, no murmur, no edema Gastrointestinal (Abdomen) Inspection/Auscultation: + abdomen distended Genitourinary OB Exam Abdomen: + fundal height Fundus: + firm and + relation to umbilicus (AT UMBILICUS) Results & Data <Edith Quiñones MD - Last Filed: 12/19/18 07:37> Laboratory Results Laboratory Results - last 24 hr 12/19/18 12/19/18 06:30 06:30 WBC 11.35 H RBC 4.09 L Hgb 10.3 L Hct 33.5 L MCV 81.9 MCH 25.2 MCHC 30.7 L RDW Std Deviation 43.7 RDW Coeff of Gerardo 14.6 H Plt Count 204 MPV 10.0 Sodium 137 Potassium 4.0 Chloride 106 Carbon Dioxide 26 Anion Gap 5.0 BUN 8 Creatinine 0.48 L Est Cr Clr Drug Dosing 191.7 Est GFR ( Amer) > 150.0 Est GFR (Non-Af Amer) 132.6 BUN/Creatinine Ratio 16.7 Glucose 69 L Calcium 8.6 Total Bilirubin 0.2 AST 24 ALT 20 Alkaline Phosphatase 127 H Total Protein 6.7 Albumin 2.7 L Globulin 4.0 Albumin/Globulin Ratio 0.7 L Medications Administered Home Medications vit [id number] [ Vitamin] 1 tab PO DAILY 12/18/18 [ History Confirmed 12/18/18] Active Medications Acetaminophen (Tylenol) 650 mg PO Q6H PRN PRN Reason: Pain/FERRARA/Fever Stop: 01/17/19 11:03 Benzocaine (Dermoplast Pain Relieving [place]) 1 appln EXT PRN PRN PRN Reason: Perineal Discomfort Stop: 01/17/19 11:03 Bisacodyl (Dulcolax) 10 mg [place] DAILY PRN PRN Reason: No BM on 2nd post- day Stop: 12/20/18 23:59 Bisacodyl (Dulcolax) 5 mg PO 1999 [facility] Stop: 12/19/18 20:01 Cocaine HCl (Supercream 0.870%) 1 gm EXT BID PRN PRN Reason: Hemorrhoidal Inflammation Stop: 01/01/19 11:03 Docusate Sodium (Colace) 100 mg PO BID [facility] Stop: 01/17/19 20:59 Last Admin: 12/18/18 20:42 Dose: 100 mg Hydrocortisone (Anusol Hc) 25 mg [place] BID PRN PRN Reason: Hemorrhoidal Inflammation Stop: 01/17/19 11:03 Oxytocin (Pitocin) 30 units in 500 mls @ 333.333 mls/hr IV .Q1H30M PRN; Protocol PRN Reason: BLEEDING CONTROL Stop: 01/17/19 11:03 Ibuprofen (Motrin) 600 mg PO Q4H PRN PRN Reason: Pain/FERRARA/Cramping/Fever Stop: 01/17/19 11:03 Last Admin: 12/18/18 20:42 Dose: 600 mg Prenat Multivit/[place]/Iron/Folic Ac ( Vitamin) 1 tab PO QAM [facility] Stop: 01/18/19 08:59 <Troy Gracia MD - Last Filed: 12/22/18 09:23> Co-Signing Physician Notes Patient evaluated and agree with the above finding and plan
[2018-12-19 07:25] LABS: Alanine Aminotransferase 20 U/L (12-78); Albumin Level 2.7 gm/dl (3.4-5.0); Aspartate Aminotransferase 24 U/L (15-37); BUN Creatinine Ratio 16.7 (10-20); Blood Urea Nitrogen 8 mg/dl (7-18); Calcium 8.6 mg/dl (8.5-10.1); Carbon Dioxide 26 mmol/L (21-32); Chloride 106 mmol/L (98-107); Creatinine Clr Calc Pharmacy 191.7 ml/min; Est GFR (African American) > 150.0; Est GFR (Non-African American) 132.6; Glucose 69 mg/dl (70-99); Sodium 137 mmol/L (136-145)
[2018-12-19 07:28] LABS: Albumin Globulin Ratio 0.7 (0.9-2); Alkaline Phosphatase 127 U/L (45-117); Bilirubin,Total 0.2 mg/dl (0.2-1); Total Protein 6.7 gm/dl (6.4-8.2)
[2018-12-19] MEDS: DOCUSATE SODIUM 100 MG CAP PO SCH ×2 (07:51→21:08)
[2018-12-19] MEDS: PRENATAL VITAMIN 1 TAB PO SCH (07:51)
[2018-12-19] MEDS: IBUPROFEN 600 MG TAB PO PRN (13:08)
[2018-12-19] MEDS ORDERED: LORazepam 0.5 MG TAB PO STA (18:56)
[2018-12-19 19:19] LABS: Hematocrit (blood only) 35.4 % (37-47); Hemoglobin 11.1 g/dL (12.0-16.0); Mean Corpuscular Volume 81.4 fL (80-100); Mean Platelet Volume 10.4 fL (7.4-10.4); Platelet Count 239 K/uL (130-400); RDW Coefficient of Variation 14.6 % (11.5-14.5); RDW Standard Deviation 43.5 fL (36.4-46.3); Red Blood Count 4.35 M/uL (4.2-5.4); White Blood Count 11.97 K/uL (4.8-10.8)
[2018-12-19 19:30] LABS: Mean Corpuscular Hgb Conc 31.4 g/dL (32-36)
--- NOTE | 2018-12-19 19:30 | Communication Note ---
Date of Service: December 19, 2018 Delayed documentation. Spent 30+ minutes at bedside listening to and patient share concerns related to her anxiety. She feels that she is "the only person who can keep the baby safe," and that she must stay awake 24 hours a day to be watchful over her baby. She is anxious about her kids at home, her blood pressure, her lack of sleep, and many other things. She acknowledges that her kids at home are actually safe with her mom, and that her is a trustworthy person who she believes is an excellent parent, but feels a pressing need to watch her baby that she admits probably goes beyond what is reasonable. She notes that she had preexisting generalized anxiety disorder but has not wanted to take any medication (benzo or SSRI) since her first . She is agreeable to a single dose of Ativan in order to allow herself to sleep tonight, but needs to make a "plan" in order to rest - the plan is that we will run labs to reassure her about her BP, she will breastfeed the baby, and then she will take the ativan while "assigning" care of the baby to while she rests. She feels much better with this plan and has stopped crying and seems much less tense. Note that right after I left her room, I was informed her baby failed the CCHD test and is requiring oxygen. Infant is in the nursery. I spoke to Dr. Burger directly, informed him of mom's anxiety, and encouraged him to notify her of the test results along with a comprehensive plan of next steps and what she can expect in order to allay the increase in anxiety that this news will likely provoke. I anticipate that this news will be especially difficult for her as she is a bit emotionally fragile right now and is quite sleep deprived.
[2018-12-19 19:37] LABS: Albumin Level 2.6 gm/dl (3.4-5.0); BUN Creatinine Ratio 18.6 (10-20); Creatinine Clr Calc Pharmacy 146.1 ml/min; Est GFR (African American) 140.5; Est GFR (Non-African American) 121.2; Potassium 3.6 mmol/L (3.5-5.1)
[2018-12-19 19:40] LABS: Albumin Globulin Ratio 0.6 (0.9-2); Bilirubin,Total 0.2 mg/dl (0.2-1); Globulin 4.5 gm/dl (2.5-4.0); Total Protein 7.1 gm/dl (6.4-8.2)
[2018-12-19] MEDS ORDERED: BISACODYL 5 MG TABEC PO SCH (20:00)
[2018-12-20] MEDS ORDERED: LORazepam 0.5 MG TAB ONE (02:19)
[2018-12-20] MEDS: IBUPROFEN 600 MG TAB PO PRN (02:26)
[2018-12-20] MEDS ORDERED: BISACODYL 10 MG SUPP PR PRN (06:00)
--- NOTE | 2018-12-20 06:42 | Obstetrical Progress Note ---
Date of Service <Edith Quiñones MD - Last Filed: 12/20/18 06:42> December 20, 2018 Assessment & Plan <Edith Quiñones MD - Last Filed: 12/20/18 06:42> (1) (spontaneous vaginal delivery): 28YO WITH AT 39.5. Anxiety with palpitations. PPD Day 2 Anxiety -received Ativan last night Discharge -instructions reviewed Subjective <Edith Quiñones MD - Last Filed: 12/20/18 06:42> Ambulation: ambulating normally Voiding: no voiding problems Passing Gas:: Yes Diet Tolerance:: regular diet Lochia:: Moderate Feeding Type:: breast feeding Current Pain Level(1-10): 2 Constitutional: no fever and no chills Respiratory: no dyspnea Cardiovascular: + palpitations (Got Ativan last night. Feeling better.); no chest pain Gastrointestinal: no nausea and no vomiting Genitourinary (female): no dysuria Neurologic: no headache(s) Physical Exam <Edith Quiñones MD - Last Filed: 12/20/18 06:42> Vital Signs (Past 24 Hours) Last Vital Signs Temp 36.4 C L 12/20/18 00:05 Pulse 101 H 12/20/18 00:05 Resp 18 12/20/18 00:05 BP 144/97 H 12/20/18 00:05 Pulse Ox 98 12/19/18 07:44 Respiratory normal respiratory effort, lungs clear to auscultation Cardiovascular RRR, no murmur, no edema Genitourinary OB Exam Abdomen: + fundal height Fundus: + firm Results & Data <Edith Quiñones MD - Last Filed: 12/20/18 06:42> Laboratory Results Laboratory Results - last 24 hr 12/19/18 12/19/18 12/19/18 06:30 06:30 19:07 WBC 11.35 H 11.97 H RBC 4.09 L 4.35 Hgb 10.3 L 11.1 L Hct 33.5 L 35.4 L MCV 81.9 81.4 MCH 25.2 25.5 MCHC 30.7 L 31.4 L RDW Std Deviation 43.7 43.5 RDW Coeff of Gerardo 14.6 H 14.6 H Plt Count 204 239 MPV 10.0 10.4 Sodium 137 Potassium 4.0 Chloride 106 Carbon Dioxide 26 Anion Gap 5.0 BUN 8 Creatinine 0.48 L Est Cr Clr Drug Dosing 191.7 Est GFR ( Amer) > 150.0 Est GFR (Non-Af Amer) 132.6 BUN/Creatinine Ratio 16.7 Glucose 69 L Calcium 8.6 Total Bilirubin 0.2 AST 24 ALT 20 Alkaline Phosphatase 127 H Total Protein 6.7 Albumin 2.7 L Globulin 4.0 Albumin/Globulin Ratio 0.7 L 12/19/18 19:07 WBC RBC Hgb Hct MCV MCH MCHC RDW Std Deviation RDW Coeff of Gerardo Plt Count MPV Sodium 139 Potassium 3.6 Chloride 105 Carbon Dioxide 25 Anion Gap 9.0 BUN 12 Creatinine 0.63 Est Cr Clr Drug Dosing 146.1 Est GFR ( Amer) 140.5 Est GFR (Non-Af Amer) 121.2 BUN/Creatinine Ratio 18.6 Glucose 156 H Calcium 9.0 Total Bilirubin 0.2 AST 21 ALT 20 Alkaline Phosphatase 129 H Total Protein 7.1 Albumin 2.6 L Globulin 4.5 H Albumin/Globulin Ratio 0.6 L Medications Administered Home Medications vit [id number] [ Vitamin] 1 tab PO DAILY 12/18/18 [ History Confirmed 12/18/18] Active Medications Acetaminophen (Tylenol) 650 mg PO Q6H PRN PRN Reason: Pain/FERRARA/Fever Stop: 01/17/19 11:03 Benzocaine (Dermoplast Pain Relieving [place]) 1 appln EXT PRN PRN PRN Reason: Perineal Discomfort Stop: 01/17/19 11:03 Bisacodyl (Dulcolax) 10 mg [place] DAILY PRN PRN Reason: No BM on 2nd post- day Stop: 12/20/18 23:59 Cocaine HCl (Supercream 0.870%) 1 gm EXT BID PRN PRN Reason: Hemorrhoidal Inflammation Stop: 01/01/19 11:03 Docusate Sodium (Colace) 100 mg PO BID [facility] Stop: 01/17/19 20:59 Last Admin: 12/19/18 21:08 Dose: Not Given Hydrocortisone (Anusol Hc) 25 mg [place] BID PRN PRN Reason: Hemorrhoidal Inflammation Stop: 01/17/19 11:03 Oxytocin (Pitocin) 30 units in 500 mls @ 333.333 mls/hr IV .Q1H30M PRN; Protocol PRN Reason: BLEEDING CONTROL Stop: 01/17/19 11:03 Ibuprofen (Motrin) 600 mg PO Q4H PRN PRN Reason: Pain/FERRARA/Cramping/Fever Stop: 01/17/19 11:03 Last Admin: 12/20/18 02:26 Dose: 600 mg Prenat Multivit/[employer]/Iron/Folic Ac ( Vitamin) 1 tab PO QAM [facility] Stop: 01/18/19 08:59 Last Admin: 12/19/18 07:51 Dose: 1 tab <Skyla Fallon MD - Last Filed: 12/20/18 08:33> Co-Signing Physician Notes Patient with significant anxiety improvement after ativan. However only got 1- 2 hours sleep, and is awake at bedside in nursery while baby undergoes echocardiogram this morning. She is aware she will be medically [facility] today but that I remain concerned for her mental health and would encourage her to reach out for ativan Rx and/or SSRI and/or counseling if these things would be of interest to her going forward. She has good family and spousal support and is understandably concerned about her . At this time there is no SI/HI.
[2018-12-20] MEDS: DOCUSATE SODIUM 100 MG CAP PO SCH (08:42)
[2018-12-20] MEDS: PRENATAL VITAMIN 1 TAB PO SCH (08:42)
== END 2018-12-20 18:45 | disposition home or self-care (01) | DRG 807 ==
LOC: OPB 09:31 → 4S1 09:34 → 4S2 13:15